=== PATIENT | male | born 1950 | race Caucasian/White ===

== ENCOUNTER 2018-10-20 06:52 | Day surgery (SDC) | payer MEDICARE ==
[~2018-10-20] VITALS: Ht 177.8 cm; Wt 97.8 kg
[2018-10-20 08:59] VITALS: BP 146/95
[2018-10-20] MEDS ORDERED: MIDAZOLAM 1 MG/ML, 2ML ONE (09:09)
[2018-10-20] MEDS ORDERED: LISI2.5T PO (09:09)
[2018-10-20] MEDS ORDERED: METF850T10 PO (09:09)
[2018-10-20] MEDS ORDERED: METF500T17 PO (09:09)
[2018-10-20] MEDS ORDERED: ATOR20TA37 PO (09:09)
[2018-10-20] MEDS ORDERED: FENTANYL PF 250 MCG/5ML ONE (09:10)
[2018-10-20 09:40] LABS: BASOPHILS # (AUTO) 0.04 x10^3/uL (0-0.1); BASOPHILS % (AUTO) 1 % (0-1); EOSINOPHILS % (AUTO) 3 % (1-7); LYMPHOCYTES # (AUTO) 2.07 x10^3/uL (1-3.4); LYMPHOCYTES % (AUTO) 28 % (22-44); MD NO; MEAN CORPUSCULAR HEMOGLOBIN 28.7 pg (27.5-34.5); MEAN CORPUSCULAR HGB CONC 32.9 g/dL (33.2-36.2); MEAN CORPUSCULAR VOLUME 87.2 fL (81-97); MEAN PLATELET VOLUME 9.2 fL (7.4-10.4); MONOCYTES # (AUTO) 0.44 x10^3/uL (0.2-0.8); MONOCYTES % (AUTO) 6 % (2-9); NEUTROPHILS % (AUTO) 63 % (42-75); PLATELET COUNT 220 x10^3/uL (130-400); RED BLOOD COUNT 5.39 x10^6/uL (4.38-5.82); RED CELL DISTRIBUTION WIDTH 13.3 % (9.4-14.8)
[2018-10-20] MEDS ORDERED: LACTATED RINGERS 1,000 ML IV SCH ×2 (09:41→09:43)
[2018-10-20] MEDS ORDERED: ISOSULFAN BLUE 10 MG/ML, 5ML IV ONE (09:42)
[2018-10-20] MEDS ORDERED: BACITRACIN OINT 500U/GM, 15 GM ONE (09:42)
[2018-10-20] MEDS ORDERED: LIDOCAINE/MPF 2%-EPI 1:200K, 20 ML ONE (09:42)
[2018-10-20] MEDS ORDERED: EPINEPHRINE 1 MG/ML, 1ML ONE (09:42)
[2018-10-20] MEDS ORDERED: LIDOCAINE 1%, 20ML ONE (09:43)
[2018-10-20 09:49] LABS: PROTHROMBIN TIME 10.5 Seconds (9.6-11.5)
[2018-10-20 09:50] LABS: CALCIUM 8.8 mg/dL (8.5-10.1); CREATININE 1.23 mg/dL (0.7-1.3)
[2018-10-20] MEDS ORDERED: DEXAMETHASONE 4 MG/ML, 1ML ONE (10:02)
[2018-10-20 10:06] LABS: ANION GAP 4 mmol/L (5-15); CHLORIDE 114 mmol/L (98-107)
[2018-10-20] MEDS ORDERED: CEFAZOLIN 1,000 MG ONE (10:13)
[2018-10-20] MEDS ORDERED: ONDANSETRON 2MG/ML, 2ML ONE (11:26)
[2018-10-20] MEDS ORDERED: PROPOFOL 10 MG/ML, 20ML ONE (11:26)
[2018-10-20] MEDS ORDERED: ROCURONIUM 10MG/ML,5ML ONE (11:26)
== END 2018-10-20 14:25 | disposition home or self-care (01) ==
LOC: OUT 06:52
PROVIDERS: ATTEND Otolaryngology Otolaryngology/Facial Plastic Surgery
DX: D03.39 Melanoma in situ of other parts of face (principal); R59.1 Generalized enlarged lymph nodes; E11.9 Type 2 diabetes mellitus without complications; M10.9 Gout, unspecified; Z90.49 Acquired absence of other specified parts of digestive tract; Z79.01 Long term (current) use of anticoagulants; Z72.89 Other problems related to lifestyle; Z79.899 Other long term (current) drug therapy
CPT/HCPCS: 11646; 36415; 38500; 71045; 78195; 80048; 82962; 85025; 85610; 85730; 88305; 88341; 88342; 93005; A9541; J0171; J0690; J1100; J2250; J2405; J2704; J3010; J3490; J7120

== ENCOUNTER 2018-10-25 07:46 | Day surgery (SDC) | payer MEDICARE ==
[~2018-10-25] VITALS: Ht 177.8 cm; Wt 99.0 kg
[~2018-10-25 07:46] MED LIST: ACETAMINOPHEN 325 MG TABLET PO PRN; ATOR20TA37 PO; FENTANYL PF 100 MCG/2ML IV PRN; HYDROmorphone 2 MG/ML, 1ML IVPush PRN; LABETALOL 5MG/ML, 20ML IV PRN; LISI2.5T PO; MEPERIDINE/PF 25MG/0.5ML IVPush PRN; METF500T17 PO; METF850T10 PO; ONDANSETRON ODT 8 MG PO PRN; OXYcodone 5 MG/5 ML ORAL.SOL UDC PO PRN; PROMETHAZINE 25 MG/ML, 1ML IV PRN; hydrALAzine 20 MG/ML, 1ML IV PRN
[2018-10-25] MEDS ORDERED: FENTANYL PF 250 MCG/5ML ONE (07:52)
[2018-10-25] MEDS ORDERED: LACTATED RINGERS 1,000 ML IV SCH (08:22)
[2018-10-25 08:26] VITALS: BP 158/93
[2018-10-25] MEDS ORDERED: LIDOCAINE-MPF 1%, 2ML INFIL ONE (08:30)
[2018-10-25] MEDS ORDERED: BUPIVACAINE/PF-EPI 0.5% 1:200K ONE (09:41)
[2018-10-25] MEDS ORDERED: EPINEPHRINE 1 MG/ML, 1ML ONE (09:47)
[2018-10-25] MEDS ORDERED: BUPIVACAINE/PF 0.25% ONE (09:47)
[2018-10-25] MEDS ORDERED: SUCCINYLCHOLINE 20 MG/ML, 10ML ONE (09:50)
[2018-10-25] MEDS ORDERED: CEFAZOLIN 1,000 MG ONE (09:50)
[2018-10-25] MEDS ORDERED: ROCURONIUM 10 MG/ML,10ML ONE (09:50)
[2018-10-25] MEDS ORDERED: ONDANSETRON 2MG/ML, 2ML ONE (09:50)
[2018-10-25] MEDS ORDERED: PROPOFOL 10 MG/ML, 20ML ONE (09:50)
[2018-10-25] MEDS ORDERED: EPHEDRINE 50 MG/ML, 1ML ONE (09:50)
[2018-10-25] MEDS ORDERED: DEXAMETHASONE 4 MG/ML, 1ML ONE (09:50)
[2018-10-25] MEDS ORDERED: LABETALOL 5MG/ML, 20ML IV PRN (10:00)
[2018-10-25] MEDS ORDERED: OXYcodone 5 MG/5 ML ORAL.SOL UDC PO PRN (10:00)
[2018-10-25] MEDS ORDERED: FENTANYL PF 100 MCG/2ML IV PRN (10:00)
[2018-10-25] MEDS ORDERED: ONDANSETRON 2MG/ML, 2ML IV PRN (10:00)
[2018-10-25] MEDS ORDERED: hydrALAzine 20 MG/ML, 1ML IV PRN (10:00)
[2018-10-25] MEDS ORDERED: PROMETHAZINE 25 MG/ML, 1ML IV PRN (10:00)
[2018-10-25] MEDS ORDERED: ACETAMINOPHEN 325 MG TABLET PO PRN (10:00)
[2018-10-25] MEDS ORDERED: HYDROmorphone 2 MG/ML, 1ML IVPush PRN (10:00)
[2018-10-25] MEDS ORDERED: ONDANSETRON ODT 8 MG PO PRN (10:00)
[2018-10-25] MEDS ORDERED: BACITRACIN OINT 500U/GM, 15 GM ONE (11:18)
== END 2018-10-25 16:20 | disposition home or self-care (01) ==
LOC: OUT 07:46
PROVIDERS: ATTEND Otolaryngology Otolaryngology/Facial Plastic Surgery
DX: C43.39 Malignant melanoma of other parts of face (principal); I10 Essential (primary) hypertension; E11.9 Type 2 diabetes mellitus without complications; M10.9 Gout, unspecified; Z88.8 Allergy status to other drugs, medicaments and biological substances; Z90.49 Acquired absence of other specified parts of digestive tract; Z72.89 Other problems related to lifestyle; Z79.84 Long term (current) use of oral hypoglycemic drugs
CPT/HCPCS: 14041; 82962; J0171; J0330; J0690; J1100; J2405; J2704; J3010; J3490; J7120